=== PATIENT | female | born 1965 | race Caucasian/White ===

== ENCOUNTER 2018-03-19 15:51 | Emergency (ER) | payer OTHER ==
[~2018-03-19] VITALS: Ht 165.1 cm; Wt 59.7 kg
[~2018-03-19 15:51] MED LIST: ALBU1AER9 INH; ALPR-411 PO; BSP15 PO; BUPR75TA20 PO; CONJ1TAB PO; LITH300T2 PO; LITH600C PO; PRM625 PO; QUET-205 PO; QUET1TAB30 PO; SNG10 PO; SYN25 PO
[2018-03-19 15:58] VITALS: TEMP 36.8; O2SAT 97; Ht 165.1 cm; Wt 59.7 kg
--- NOTE | 2018-03-19 16:48 | EMERGENCY ROOM VISIT NOTE ---
History Report prepared by William: Nathan Greene Under the Supervision of: Dr. Jemima Ortiz D.O. First contact with patient: 16:03 Chief Complaint: CONFUSION Stated Complaint: HEADACHE, CONFUSION Nursing Triage Summary: For the last 6 months, patient has been falling frequently, dizzy, having tremors, and periods of confusion. Today, patient went to PCP for evaluation and they referred her here. On the way here, patient had severe left sided headache lasting about 10 minutes and then subsided, patient report she has never experienced this before. Relates 7 falls in the last month. Pt was hospitalized 1 month ago for bilateral PEs and started on Eliquis. Pt drove herself to her appointment and reports she was swerving all over. History of Present Illness The patient is a 52 year old female who presents to the Emergency Room with complaints of intermittent confusion, dizziness, and falls for the past 6 months. The patient states that she also has been having tremors for the past 6 months. She states that when she gets up from the couch she has to hold on the coffee table, and then when she walks to the chair her legs give out and she falls, and she has to crawl, though she states that her legs don't work very well when she is on the ground. The patient states that she will then need help to get back onto the couch, though once she is on the couch after an hour or so she is able to stand on her legs again, though she must still use things to hold herself up. She notes that she has fallen 7 times in the past hour. The patient states that she was in the ICU 2-3 weeks ago for bilateral PEs, and she was discharged on Eliquis, and she states that she takes her Eliquis "pretty much every day". The patient was seen by her PCP this morning, and they referred her to the ER for these persisting symptoms and failed neuro tests. The patient states that she is unsure what started the symptoms 6 months ago, and she was not put on any new medications other than the recent Eliquis. The patient states that she has been dizzy, and on the way to her doctor this morning she was swerving in the road since her vision was a little blurry. She notes that she gets weekly thiamine infusions, though she has not drank alcohol for a year, but she used to drink alcohol. Per the nursing staff, the patient had a headache on the left side for ten minutes prior to arrival, though she is now not complaining of a headache. The patient denies any swelling in her legs, change in bowel movements, problems urinating, recent illness, fever, chills, and back pain. Source of History: patient Onset: the past 6 months Position: other (generalized) Quality: other (confusion, dizziness, and falls) Timing: intermittent Associated Symptoms: + headache, No fevers, No chills, No back pain Review of Systems See HPI for pertinent positives & negatives. A total of 10 systems reviewed and were otherwise negative. Past Medical & Surgical Medical Problems: (1) Bipolar disorder Social History Smoking Status: Current Every Day Smoker Marital Status: single Occupation Status: disabled Current/Historical Medications Scheduled Apixaban (Eliquis), 5 MG PO BID Buspirone Hcl (Buspar), 15 MG PO TID Cephalexin (Keflex), 1 CAP PO BID Citalopram Hydrobromide (Celexa), 40 MG PO DAILY Cyanocobalamin (Cyanocobalamin), 1,000 MCG IM UD Cyclobenzaprine Hcl (Flexeril), 5 MG PO HS Ergocalciferol (Vitamin D 20106 Unit), 50,000 INTER.UNIT PO MONTHLY Folic Acid (Folvite), 1 MG PO DAILY Gabapentin (Neurontin), 600 MG PO HS Gabapentin (Neurontin), 400 MG PO HS Lamotrigine (Lamictal), 100 MG PO BID Levothyroxine Sodium (Levothyroxine Sodium), 25 MCG PO DAILY [place] Carbonate ([place] Carbonate Tab), 300 MG PO QAM [place] Carbonate ([place] Carbonate Tab), 600 MG PO HS Montelukast Sodium (Singulair), 10 MG PO DAILY Propranolol Hcl (Inderal), 10 MG PO BID Quetiapine Fumarate (Seroquel), 300 MG PO HS Ropinirole Hcl (Requip), 2 MG PO HS Thiamine Hcl (Vitamin B-1), 100 MG PO DAILY Trazodone Hcl (Trazodone), 200 MG PO HS Allergies Coded Allergies: Lorazepam (Verified Adverse Reaction, Intermediate, DISORIENTED, 03/19/18) Physical Exam Vital Signs Date Time Temp Pulse Resp B/P (MAP) Pulse Ox O2 Delivery O2 Flow Rate FiO2 03/19/18 19:36 62 16 107/68 97 Room Air 03/19/18 18:24 61 16 106/79 97 Room Air 61 112/73 65 103/77 03/19/18 17:59 61 20 105/68 Room Air 03/19/18 16:25 61 03/19/18 15:58 97 Room Air 03/19/18 15:58 36.8 68 18 108/71 97 Room Air Physical Exam GENERAL: alert, appears older than stated age, well nourished, no distress, non- toxic EYE EXAM: normal conjunctiva, PERRL and EOM's grossly intact OROPHARYNX: no exudate, no erythema, lips, buccal mucosa, and tongue normal and mucous membranes are moist NECK: supple, no nuchal rigidity, no adenopathy, non-tender LUNGS: Clear to auscultation. Normal chest wall mechanics HEART: no murmurs, S1 normal and S2 normal ABDOMEN: abdomen soft, non-tender, normo-active bowel sounds, no masses, no rebound or guarding. BACK: Back is symmetrical on inspection and there is no deformity, no midline tenderness, no CVA tenderness. SKIN: no rashes and no bruising UPPER EXTREMITIES: upper extremities are grossly normal. LOWER EXTREMITIES: Trace pedal edema NEURO EXAM: Baseline tremor, difficulty with finger to nose, difficulty with heel to savage, strength and sensory otherwise were okay Medical Decision & Procedures ER Provider Diagnostic Interpretation: Radiology results have been interpreted by the radiologist and reviewed by me. ANGIOGRAPHY HEAD COMBO HISTORY: Mental status change. Confusion TECHNIQUE: Multiaxial CT images of the head were performed both before and after the intravenous administration of contrast to evaluate the major cerebral vessels. Maximum intensity projection images were also obtained. A dose lowering technique was utilized adhering to the principles of ALARA. COMPARISON: None. FINDINGS: There is no mass, hematoma, midline shift, or acute infarct. Visualized intracranial internal carotid arteries, distal vertebral arteries, and basilar artery are widely patent. There is no significant stenosis, occlusion, or aneurysm seen within the bilateral ACAs, MCAs, or flying i instructor. IMPRESSION: No significant stenosis, occlusion, or aneurysm within the [place]. Negative CT of the brain The above report was generated using voice recognition software. It may contain grammatical, syntax or spelling errors. Electronically signed by: Ronaldo Lind M.D. 03/19/2018 5:45 PM Dictated Date/Time: 03/19/2018 5:43 PM CHEST ONE VIEW PORTABLE HISTORY: 74 years-old Male I25.10 Arteriosclerotic coronary artery [id number] Type 2 diab acute dizziness with fall and headache COMPARISON: Chest radiograph 11/26/2012 TECHNIQUE: Portable AP view of the chest FINDINGS: Cardiomediastinal and hilar silhouettes are within normal limits. No pneumothorax, pleural effusion, focal airspace consolidation or overt pulmonary edema. The bones of the chest appear grossly intact. Surgical clips of the right upper quadrant suggest prior cholecystectomy. Mild gaseous distention of the splenic flexure. IMPRESSION: No acute process of the chest. The above report was generated using voice recognition software. It may contain grammatical, syntax or spelling errors. Electronically signed by: Mingo Smith M.D. 03/19/2018 5:19 PM Dictated Date/Time: 03/19/2018 5:18 PM Laboratory Results 03/19/18 16:37 Red Blood Count 4.06, Mean Corpuscular Volume 84.0, Mean Corpuscular Hemoglobin 25.9, Mean Corpuscular Hemoglobin Concent 30.8, Mean Platelet Volume 9.5, Neutrophils (%) (Auto) 60.1, Lymphocytes (%) (Auto) 32.5, Monocytes (%) (Auto) 6.2, Eosinophils (%) (Auto) 0.6, Basophils (%) (Auto) 0.6, Neutrophils # (Auto) 3.90, Lymphocytes # (Auto) 2.11, Monocytes # (Auto) 0.40, Eosinophils # (Auto) 0.04, Basophils # (Auto) 0.04 03/19/18 16:37 Test 03/19/18 16:36 03/19/18 16:37 03/19/18 17:25 [place] Level 1.0 mMOL/L (0.6-1.2) White Blood Count 6.49 K/uL (4.8-10.8) Red Blood Count 4.06 M/uL (4.2-5.4) Hemoglobin 10.5 g/dL (12.0-16.0) Hematocrit 34.1 % (37-47) Mean Corpuscular Volume 84.0 fL (80-100) Mean Corpuscular Hemoglobin 25.9 pg (25-34) Mean Corpuscular Hemoglobin Concent 30.8 g/dl (32-36) Platelet Count 262 K/uL (130-400) Mean Platelet Volume 9.5 fL (7.4-10.4) Neutrophils (%) (Auto) 60.1 % Lymphocytes (%) (Auto) 32.5 % Monocytes (%) (Auto) 6.2 % Eosinophils (%) (Auto) 0.6 % Basophils (%) (Auto) 0.6 % Neutrophils # (Auto) 3.90 K/uL (1.4-6.5) Lymphocytes # (Auto) 2.11 K/uL (1.2-3.4) Monocytes # (Auto) 0.40 K/uL (0.11-0.59) Eosinophils # (Auto) 0.04 K/uL (0-0.5) Basophils # (Auto) 0.04 K/uL (0-0.2) RDW Standard Deviation 52.6 fL (36.4-46.3) RDW Coefficient of Variation 16.9 % (11.5-14.5) Immature Granulocyte % (Auto) 0.0 % Immature Granulocyte # (Auto) 0.00 K/uL (0.00-0.02) Prothrombin Time 10.0 SECONDS (9.0-12.0) Prothromb Time International Ratio 1.0 (0.9-1.1) Anion Gap 4.0 mmol/L (3-11) Est Creatinine Clear Calc Drug Dose 50.3 ml/min Estimated GFR () 62.5 Estimated GFR (Non- 53.9 BUN/Creatinine Ratio 10.4 (10-20) Calcium Level 9.2 mg/dl (8.5-10.1) Magnesium Level 2.1 mg/dl (1.8-2.4) Total Bilirubin 0.4 mg/dl (0.2-1) Aspartate Amino Transf (AST/SGOT) 34 U/L (15-37) Alanine Aminotransferase (ALT/SGPT) 56 U/L (12-78) Alkaline Phosphatase 226 U/L (45-117) Ammonia < 10.0 umol/L (11-32) Troponin I < 0.015 ng/ml (0-0.045) Total Protein 6.8 gm/dl (6.4-8.2) Albumin 3.4 gm/dl (3.4-5.0) Globulin 3.4 gm/dl (2.5-4.0) Albumin/Globulin Ratio 1.0 (0.9-2) Thyroid Stimulating Hormone (TSH) 2.180 uIu/ml (0.300-4.500) Ethyl Alcohol mg/dL < 3.0 mg/dl (0-3) Rapid Plasma Reagin NONREACTIVE (NONREACT) Urine Color YELLOW Urine Appearance CLOUDY (CLEAR) Urine pH 7.0 (4.5-7.5) Urine Specific [place] 1.013 (1.000-1.030) Urine Protein NEG (NEG) Urine Glucose (UA) NEG (NEG) Urine Ketones NEG (NEG) Urine Occult Blood NEG (NEG) Urine Nitrite NEG (NEG) Urine Bilirubin NEG (NEG) Urine Urobilinogen NEG (NEG) Urine Leukocyte Esterase LARGE (NEG) Urine WBC (Auto) 10-30 /hpf (0-5) Urine RBC (Auto) 0-4 /hpf (0-4) Urine Hyaline Casts (Auto) 1-5 /lpf (0-5) Urine Epithelial Cells (Auto) >30 /lpf (0-5) Urine Bacteria (Auto) 1+ (NEG) Urine Opiates Screen NEG (NEG) Urine Methadone, Qualitative NEG (NEG) Urine Barbiturates NEG (NEG) Urine Phencyclidine (PCP) Level NEG (NEG) Ur Amphetamine/Methamphetamine NEG (NEG) MDMA (Ecstasy) Screen POS (NEG) Urine Benzodiazepines Screen NEG (NEG) Urine Cocaine Metabolite NEG (NEG) Urine Marijuana (THC) NEG (NEG) Laboratory results per my review. Medications Administered Medications (Trade) Dose Ordered Sig/Toni Route Start Time Stop Time Status Last Admin Dose Admin Cephalexin Monohydrate (Keflex Cap) 500 mg NOW ONCE PO 03/19/18 18:45 03/19/18 18:46 DC 03/19/18 19:09 500 MG ECG Per My Interpretation Indication: weakness Rate (beats per minute): 60 Rhythm: sinus rhythm Findings: other (normal axis, normal intervals, non-specific T wave flattening in V5, V6, and AVF, low voltage throughout) ED Course 1603: The patient was evaluated in room A11. A complete history and physical exam was performed. 1845: I reevaluated the patient, and she was able to walk. 4: I reevaluated the patient, and she would like to go home. I discussed her test results with her, and I discussed no driving and follow up. She will be discharged home. Medical Decision Differential diagnosis: Etiologies such as benign positional vertigo, dehydration, hypovolemia, anemia, tumor, infection, hypo/hyperglycemia, electrolyte abnormalities, cardiac sources , intracerebral event, toxicologic, neurologic, as well as others were entertained. Patient with complicated medical history, and records unable to be obtained from outside facility. Patient reports 6 months of ongoing symptoms similar to why she presented tonight. Patient found to have UTI, it is unclear if this could be a contributing factor to her recent dizziness and falls. I feel patient's symptoms in part related to her prior alcohol abuse. Patient found to be slightly more anemic compared to prior night although she denies any black or bloody stools, or any hematemesis. Discussed with patient close monitoring for this as well as close follow-up with your family doctor for recheck of her H&H given that she is now on blood thinners for recently found PEs. Patient hemodynamically stable here, mild tremors only noticed with neuro testing, patient able to ambulate here with a steady gait. No other acute intracranial pathology noted. No evidence of bacteremia/sepsis. I do not suspect pyelonephritis or obstructive uropathy contributing to UTI. No evidence of dysrhythmia noted on telemetry. I do not suspect ACS or other acute vascular etiology. 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 All of this was discussed with patient at bedside. Patient asked multiple times if she could leave to go smoke and then return. Patient grew mildly agitated and began asking to leave. No seizure activity noted here. Anticonvulsant levels were checked, however one is a send out. Patient well-appearing at time of discharge, expressing gratitude for evaluation here, with plans to follow closely with her regular doctor. Discussed with her at length symptoms to watch and return for, she verbalized understanding was agreeable with plan. Medication Reconcilliation Current Medication List: was personally reviewed by me Blood Pressure Screening Patient's blood pressure: Normal blood pressure Impression Primary Impression: Dizziness Additional Impressions: Anemia Tremor UTI (urinary tract infection) Tobacco abuse Scribe Attestation The scribe's documentation has been prepared under my direction and personally reviewed by me in its entirety. I confirm that the note above accurately reflects all work, treatment, procedures, and medical decision making performed by me. Departure Information Dispostion Home / Self-Care Prescriptions Cephalexin (KEFLEX) 500 Mg Cap 1 CAP PO BID for 7 Days, #14 CAP Prov: Jemima Ortiz, DO 03/19/18 Referrals No Doctor, Assigned (PCP) Forms HOME CARE DOCUMENTATION FORM, IMPORTANT VISIT INFORMATION, WORK / SCHOOL INSTRUCTIONS Patient Instructions [facility] Additional Instructions Please call and follow-up with your family doctor. Please have them recheck your blood counts as they were slightly low and recheck your urine to make sure your infection has cleared. Please do not drink alcohol. Please take all of your medications daily as prescribed. Please use extreme caution when changing positions and standing given your recent falls and dizziness. Please take the antibiotics as prescribed. Please consider taking a probiotic or eating yogurt daily while you are on antibiotics. If you have any worsening dizziness, recurrent falls, are unable to walk, noticed black or bloody stools, develop chest pain, trouble breathing, fevers, or you have any other new concerns, please return the emergency room. Problem Qualifiers Additional Impressions: Anemia Anemia type: unspecified type Qualified Codes: D64.9 - Anemia, unspecified UTI (urinary tract infection) Urinary tract infection type: acute cystitis Hematuria presence: without hematuria Qualified Codes: N30.00 - Acute cystitis without hematuria
[2018-03-19 16:53] LABS: BASO % 0.6 %; BASO ABS # 0.04 K/uL (0-0.2); EOS % 0.6 %; EOS ABS # 0.04 K/uL (0-0.5); HEMATOCRIT 34.1 % (37-47); HEMOGLOBIN 10.5 g/dL (12.0-16.0); LYMPH % 32.5 %; LYMPH ABS # 2.11 K/uL (1.2-3.4); MEAN CORPUSCULAR HEMOGLOBIN 25.9 pg (25-34); MEAN CORPUSCULAR HGB CONC 30.8 g/dl (32-36); MEAN PLATELET VOLUME 9.5 fL (7.4-10.4); MONO % 6.2 %; NEUT % 60.1 %; PLATELET COUNT 262 K/uL (130-400); RED CELL DISTRIBUTION WIDTH CV 16.9 % (11.5-14.5); RED CELL DISTRIBUTION WIDTH SD 52.6 fL (36.4-46.3); WHITE BLOOD COUNT 6.49 K/uL (4.8-10.8)
[2018-03-19] MEDS ORDERED: TRAZ100T29 PO (17:04)
[2018-03-19] MEDS ORDERED: CYCL5TAB PO (17:05)
[2018-03-19] MEDS ORDERED: GABA-1220 PO (17:05)
[2018-03-19] MEDS ORDERED: PROP10TA7 PO (17:05)
[2018-03-19] MEDS ORDERED: CITA40TA12 PO (17:05)
[2018-03-19] MEDS ORDERED: APIX1TAB3 PO (17:05)
[2018-03-19] MEDS ORDERED: RQP2 PO (17:05)
[2018-03-19] MEDS ORDERED: LAMO100T16 PO (17:05)
[2018-03-19] MEDS ORDERED: QUET1TAB11 PO (17:05)
[2018-03-19] MEDS ORDERED: MONT1TAB3 PO (17:05)
[2018-03-19] MEDS ORDERED: BUSP15TA70 PO (17:05)
[2018-03-19] MEDS ORDERED: LITH300T2 PO ×2 (17:05)
[2018-03-19] MEDS ORDERED: LEVO25TA5 PO (17:05)
[2018-03-19] MEDS ORDERED: GABA-113 PO (17:07)
[2018-03-19] MEDS ORDERED: CYNI1000 IM (17:09)
[2018-03-19] MEDS ORDERED: FOLI1TAB8 PO (17:09)
[2018-03-19] MEDS ORDERED: THIA100T11 PO (17:09)
[2018-03-19] MEDS ORDERED: ERGO500011 PO (17:09)
[2018-03-19 17:11] LABS: ALBUMIN 3.4 gm/dl (3.4-5.0); ALT/SGPT 56 U/L (12-78); AST/SGOT 34 U/L (15-37); BLOOD UREA NITROGEN 12 mg/dl (7-18); CALCIUM 9.2 mg/dl (8.5-10.1); CARBON DIOXIDE 27 mmol/L (21-32); CREATININE 1.15 mg/dl (0.60-1.20); GLUCOSE 78 mg/dl (70-99); POTASSIUM 4.1 mmol/L (3.5-5.1); SODIUM 136 mmol/L (136-145)
--- NOTE | 2018-03-19 17:20 | DIAGNOSTIC IMAGING REPORT ---
CHEST ONE VIEW PORTABLE HISTORY: 74 years-old Male I25.10 Arteriosclerotic coronary artery [id number] Type 2 diab acute dizziness with fall and headache COMPARISON: Chest radiograph 11/26/2012 TECHNIQUE: Portable AP view of the chest FINDINGS: Cardiomediastinal and hilar silhouettes are within normal limits. No pneumothorax, pleural effusion, focal airspace consolidation or overt pulmonary edema. The bones of the chest appear grossly intact. Surgical clips of the right upper quadrant suggest prior cholecystectomy. Mild gaseous distention of the splenic flexure. IMPRESSION: No acute process of the chest. The above report was generated using voice recognition software. It may contain grammatical, syntax or spelling errors. Electronically signed by: Mingo Smith M.D. 03/19/2018 5:19 PM Dictated Date/Time: 03/19/2018 5:18 PM
[2018-03-19 17:22] LABS: ALKALINE PHOSPHATASE 226 U/L (45-117); TOTAL PROTEIN 6.8 gm/dl (6.4-8.2)
[2018-03-19] MEDS ORDERED: OPTIRAY 320 IV PRN (17:30)
--- NOTE | 2018-03-19 17:47 | DIAGNOSTIC IMAGING REPORT ---
ANGIOGRAPHY HEAD COMBO HISTORY: Mental status change. Confusion TECHNIQUE: Multiaxial CT images of the head were performed both before and after the intravenous administration of contrast to evaluate the major cerebral vessels. Maximum intensity projection images were also obtained. A dose lowering technique was utilized adhering to the principles of ALARA. COMPARISON: None. FINDINGS: There is no mass, hematoma, midline shift, or acute infarct. Visualized intracranial internal carotid arteries, distal vertebral arteries, and basilar artery are widely patent. There is no significant stenosis, occlusion, or aneurysm seen within the bilateral ACAs, MCAs, or christmas tree contractor. IMPRESSION: No significant stenosis, occlusion, or aneurysm within the [place]. Negative CT of the brain The above report was generated using voice recognition software. It may contain grammatical, syntax or spelling errors. Electronically signed by: Ronaldo Lind M.D. 03/19/2018 5:45 PM Dictated Date/Time: 03/19/2018 5:43 PM
[2018-03-19] MEDS ORDERED: CEPHALEXIN MONOHYDRATE 250 MG CAP PO ONE (18:45)
[2018-03-19] MEDS ORDERED: CEPH-571 PO (19:23)
[2018-03-19 19:36] VITALS: BP 107/68; PULSE 62; O2SAT 97
== END 2018-03-19 19:39 | disposition home or self-care (01) ==
LOC: EDBD 15:51 → C.EDA 15:52
DX: R42 Dizziness and giddiness (principal); D64.9 Anemia, unspecified; N39.0 Urinary tract infection, site not specified; R25.1 Tremor, unspecified; Z79.01 Long term (current) use of anticoagulants; F31.9 Bipolar disorder, unspecified; F17.210 Nicotine dependence, cigarettes, uncomplicated; Z79.899 Other long term (current) drug therapy; Z88.8 Allergy status to other drugs, medicaments and biological substances